=== PATIENT | male | born 1955 | race Caucasian/White ===

== ENCOUNTER 2020-05-14 06:48 | Outpatient (REF) | payer BC, SELFPAY ==
[2020-05-14 11:35] LABS: Estimated Average Glucose 108 mg/dL; Hemoglobin A1c % 5.4 %
[2020-05-14 11:48] LABS: Alanine Aminotransferase 19 U/L (0-40); Anion Gap 17 (12-20); Aspartate Amino Transferase 20 U/L (5-37); Blood Urea Nitrogen 22 mg/dL (9-16); Calcium 9.1 mg/dL (8.4-10.2); Carbon Dioxide 21 mmol/L (22-29); Chloride 106 mmol/L (96-108); Cholesterol 207 mg/dL; Estimated Glomerular Filt Rate > 60; Glucose Fasting 109 mg/dL (60-99); HDL Cholesterol 57 mg/dL; LDL Cholesterol Calculated 119 mg/dl; Potassium 4.5 mmol/l (3.3-5.1); Sodium 139 mmol/L (135-145); Triglycerides 155 mg/dL
[2020-05-14 12:12] LABS: Prostate Specific Antigen 0.35 ng/mL (<0.05-4.0)
== END 2020-05-14 06:49 | disposition home or self-care (01) ==
LOC: HO.HMGCLDS 06:48
PROVIDERS: PCP Internal Medicine; Visit Provider Internal Medicine
DX: Z00.01 Encounter for general adult medical examination with abnormal findings (principal); E78.2 Mixed hyperlipidemia; R73.01 Impaired fasting glucose; Z12.5 Encounter for screening for malignant neoplasm of prostate
CPT/HCPCS: 80048; 80061; 83036; 84153; 84450; 84460

== ENCOUNTER 2020-11-19 07:04 | Outpatient (REF) | payer OTHER, SELFPAY ==
[2020-11-19 12:28] LABS: Alanine Aminotransferase 21 U/L (0-40); Anion Gap 16 (12-20); Aspartate Amino Transferase 20 U/L (5-37); Blood Urea Nitrogen 20 mg/dL (9-16); Calcium 9.2 mg/dL (8.4-10.2); Carbon Dioxide 23 mmol/L (22-29); Chloride 106 mmol/L (96-108); Cholesterol 203 mg/dL; Estimated Glomerular Filt Rate > 60; Glucose Fasting 109 mg/dL (60-99); HDL Cholesterol 57 mg/dL; LDL Cholesterol Calculated 114 mg/dl; Potassium 4.6 mmol/L (3.3-5.1); Sodium 140 mmol/L (135-145); Triglycerides 164 mg/dL
== END 2020-11-19 07:05 | disposition home or self-care (01) ==
LOC: HO.HMGCLDS 07:04
PROVIDERS: Visit Provider Internal Medicine
DX: E66.9 Obesity, unspecified (principal); E78.2 Mixed hyperlipidemia; I10 Essential (primary) hypertension
CPT/HCPCS: 36415; 80048; 80061; 84450; 84460

== ENCOUNTER 2021-08-03 06:54 | Outpatient (REF) | payer OTHER, SELFPAY ==
[2021-08-03 12:11] LABS: Estimated Average Glucose 105 mg/dL; Hemoglobin A1c % 5.3 %
[2021-08-03 12:16] LABS: Alanine Aminotransferase 21 U/L (0-40); Anion Gap 15 (12-20); Aspartate Amino Transferase 21 U/L (5-37); Blood Urea Nitrogen 18 mg/dL (9-16); Calcium 9.5 mg/dL (8.4-10.2); Carbon Dioxide 23 mmol/L (22-29); Chloride 107 mmol/L (96-108); Cholesterol 203 mg/dL; Estimated Glomerular Filt Rate > 60; Glucose Fasting 119 mg/dL (60-99); HDL Cholesterol 60 mg/dL; LDL Cholesterol Calculated 116 mg/dl; Potassium 4.6 mmol/L (3.3-5.1); Sodium 140 mmol/L (135-145); Triglycerides 137 mg/dL
== END 2021-08-03 06:55 | disposition home or self-care (01) ==
LOC: HO.HMGCLDS 06:54
PROVIDERS: PCP Internal Medicine; Visit Provider Internal Medicine
DX: I10 Essential (primary) hypertension (principal); R73.01 Impaired fasting glucose; E78.2 Mixed hyperlipidemia
CPT/HCPCS: 36415; 80048; 80061; 83036; 84450; 84460

== ENCOUNTER 2022-04-01 07:19 | Outpatient (REF) | payer MEDICARE, OTHER, SELFPAY ==
[2022-04-01 12:38] LABS: Alanine Aminotransferase 22 U/L (0-40); Aspartate Amino Transferase 22 U/L (5-37); Cholesterol 204 mg/dL; HDL Cholesterol 53 mg/dL; LDL Cholesterol Calculated 112 mg/dl; Triglycerides 198 mg/dL
[2022-04-01 12:46] LABS: PSA,Total (Free>4and<10) 0.37 ng/mL (0.00-4.00)
== END 2022-04-01 07:20 | disposition home or self-care (01) ==
LOC: HO.HMGCLDS 07:19
PROVIDERS: PCP Internal Medicine; Visit Provider Internal Medicine
DX: Z12.5 Encounter for screening for malignant neoplasm of prostate (principal); E66.9 Obesity, unspecified; E78.2 Mixed hyperlipidemia
CPT/HCPCS: 36415; 80061; 84153; 84450; 84460

== ENCOUNTER 2022-11-26 07:24 | Day surgery (SDC) | payer MEDICARE, OTHER, SELFPAY ==
--- NOTE | 2022-11-25 10:13 | P.CONAN_ITS ---
Documented by User: Mayra Hudson NP 11/25/22 10:14 HPI - Anesthesia Eval Consult details Narrative: 67yo M for Colonoscopy [facility] Active Problems Active Problems: All Active Problems (Updated 11/25/22 @ 09:00 by Sandy Hankins RN) Impaired fasting glucose (Acute) Tubular adenoma of colon (Acute) Obesity (Acute) Mixed dyslipidemia (Acute) Past Medical History Medical History Bakers cyst History of kidney stones Hyperlipidemia Impaired fasting glucose Mixed dyslipidemia Obesity Tendinopathy of right rotator cuff Tubular adenoma of colon Family History Family History Father Medical history non-contributory Mother Medical history non-contributory Brother Diabetes mellitus Surgical History Surgical History (Updated 11/26/22 @ 08:00 by Radha Galvan RN) History of knee surgery Hx of colonoscopy Social History Social History Housing: House Alcohol intake: current Patient Tobacco Use Status: Current someday Tobacco user e-Cigarette/Vaping Use: Never Used Substance Use Frequency: Occasionally Are you DNR?: No Advance Directives: No Advance Directives Information Provided: Yes Nutrition Risks: No Nutritional Risk Current occupational status: employed Cognitive needs: No Hearing needs: No Vision needs: No Meds Allergies Allergy/AdvReac Type Severity Reaction Status Date / Time No Known Allergies Allergy Verified 11/26/22 08:00 Exam Exam Date and Time: November 25, 2022 1013 Assessment and Plan Assessment Anesthesia Assessment: Chart Reviewed Documented by User: Chago Braun MD 11/26/22 08:31 [facility] Past Medical History Medical History Bakers cyst History of kidney stones Hyperlipidemia Impaired fasting glucose Mixed dyslipidemia Obesity Tendinopathy of right rotator cuff Tubular adenoma of colon Family History Family History Father Medical history non-contributory Mother Medical history non-contributory Brother Diabetes mellitus Family history of problems with anesthesia: No Surgical History Surgical History (Updated 11/26/22 @ 08:00 by Radha Galvan RN) History of knee surgery Hx of colonoscopy History of Problems with Anesthesia: No Social History Social History Housing: House Alcohol intake: current Patient Tobacco Use Status: Current someday Tobacco user e-Cigarette/Vaping Use: Never Used Substance Use Frequency: Occasionally Are you DNR?: No Advance Directives: No Advance Directives Information Provided: Yes Nutrition Risks: No Nutritional Risk Current occupational status: employed Cognitive needs: No Hearing needs: No Vision needs: No Meds Allergies Allergy/AdvReac Type Severity Reaction Status Date / Time No Known Allergies Allergy Verified 11/26/22 08:00 Exam Airway Mallampati Class: III TM Dist: >3cm Neck ROM: Full Denture: Lower Assessment and Plan Assessment Anesthesia Assessment: Anesthesia Plan Discussed Final Anesthetic Review Family History of Problems with Anesthesia: No History of Problems with Anesthesia: No NPO: Yes ASA Class: II Final Preanesthetic Review: No Changes in Pt Med Stat, Meds/Allgs Chart Reviewed, Consent Obtained/Reviewed and Anes Risks/Benef Reviewed Patient Risk: Intermediate Procedure Risk: Low Anesthetic Plan Anesthetic Plan: MAC: Disposition: Standard PACU
[2022-11-26 07:52] VITALS: BMI 31.0
[2022-11-26] MEDS: Lactated Ringers 1,000 ML 100 ML IVCONT (07:58)
[2022-11-26 07:59] VITALS: BP 148/93; PULSE 77; RESP 18; TEMP 36.3; O2SAT 97
--- NOTE | 2022-11-26 08:01 | PC.NURSE ---
IV inserted by Frances Hirsch RN
[2022-11-26 10:00] VITALS: BP 111/54; PULSE 62; RESP 16; TEMP 36.1; O2SAT 97
--- NOTE | 2022-11-26 10:03 | P.BOP_ITS ---
Brief Operative Note Date of Service: 11/26/22 Pre-op diagnosis: Screening Post-op diagnosis: other (Colon polyps) Procedure: Colonoscopy to the cecum and TI with hot snare polypectomy x 3, and placement of submucosal ink at the distal transverse colon polypectomy site Surgeon: Brien Galdamez Was an Qualification Engineer used for this Procedure?: No Estimated blood loss (mL): 2.0 Pathology: other (A. Transverse colon polyps B. Distal transverse colon polyp) Condition: stable Disposition: PACU
[2022-11-26 10:15] VITALS: BP 132/87; PULSE 60; RESP 16; TEMP 36.1; O2SAT 99
--- NOTE | 2022-11-26 15:42 | OP_ITS ---
DATE OF SERVICE: 11/26/2022 SURGEON: Brine Galdamez MD INDICATIONS: The patient presents for evaluation of colorectal cancer screening and personal history of tubular adenomas of the colon. Full consent has been obtained from him for this, including risks of bleeding and perforation. PREOPERATIVE DIAGNOSIS: POSTOPERATIVE DIAGNOSIS: PROCEDURE PERFORMED: Colonoscopy to the cecum and terminal ileum with hot snare polypectomy x 3 and submucosal ink placement at the distal transverse colon polypectomy site. ESTIMATED BLOOD LOSS: COMPLICATIONS: ANESTHESIA: Monitored anesthesia care. ASSISTANTS: SPECIMENS: PREOPERATIVE DIAGNOSES: Colorectal cancer screening and personal history of tubular adenomas of the colon. POSTOPERATIVE DIAGNOSES: Colorectal cancer screening and personal history of tubular adenomas of the colon, colon polyps, diverticulosis and internal hemorrhoids. DESCRIPTION OF PROCEDURE: The patient was placed in the left lateral decubitus position. The digital rectal exam revealed no abnormalities. The [employer] video pediatric colonoscope was entered into the rectum and advanced easily to the cecum. Once in the cecum, I did identify normal-appearing cecal pouch with appendiceal orifice and a normal-appearing ileocecal valve. The terminal ileum was cannulated and it appeared normal. The scope was withdrawn back in the colon. The entire cecum and ileocecal valve appeared normal. The scope was then slowly withdrawn assessing all mucosal surface carefully. Preparation was excellent. In the transverse colon, there were 3 polyps. In the mid-portion of the transverse colon, there were two polyps in the same vicinity. These were both approximately 10 to 12 mm in diameter and were removed by hot snare polypectomy. Both polypectomy sites appeared clean, without any sign of residual polyp nor bleeding. In the more distal transverse colon, there was a flat, but raised irregularly shaped polyp measuring approximately 2 x 2 cm. This was all removed in piecemeal fashion with pieces recovered for pathology by suction. A submucosal ink jarett was placed just adjacent to it. The polypectomy site did not have any definitive residual polyp tissue nor any bleeding. I did not visualize any other polyps, colitis, nor angiodysplasia. There was moderate amount of sigmoid diverticulosis. In the rectum, the scope was retroflexed visualizing internal hemorrhoids, but no other pathology. The rectal mucosa appeared normal. The scope was straightened and withdrawn from the patient. He tolerated the procedure well and was returned to the recovery area in stable condition. IMPRESSION: 1. Colon polyps. 2. Diverticulosis. 3. Internal hemorrhoids. PLAN: The results of the pathology will be checked. He was advised not to use any aspirin nor NSAIDs for two weeks. I would recommend a repeat colonoscopy within 6 to 12 months to reinspect the distal transverse colon polypectomy site. He will be seen in the Fall for a followup visit to schedule the colonoscopy. MD ARISTIDES Fernandez/CASSY / [id number] MTDD
== END 2022-11-26 10:50 | disposition home or self-care (01) ==
PROVIDERS: PCP Internal Medicine; Visit Provider Internal Medicine
PROC: 0DJD8ZZ Inspection of Lower Intestinal Tract, Via Natural or Artificial Opening Endoscopic (ICD-10-PCS; CPT 45378; principal; 2022-11-26 08:30)
DX: Z12.11 Encounter for screening for malignant neoplasm of colon (principal); D12.3 Benign neoplasm of transverse colon; K57.30 Diverticulosis of large intestine without perforation or abscess without bleeding; K64.8 Other hemorrhoids; Z86.010 Personal history of colon polyps
CPT/HCPCS: 45385; 45381; 88305

== ENCOUNTER 2023-01-06 06:19 | Outpatient (REF) | payer MEDICARE, OTHER, SELFPAY ==
[2023-01-06 09:28] LABS: Estimated Average Glucose 103 mg/dL; Hemoglobin A1c % 5.2 %
[2023-01-06 09:42] LABS: Alanine Aminotransferase 18 U/L (0-40); Anion Gap 15 (12-20); Aspartate Amino Transferase 21 U/L (5-37); Blood Urea Nitrogen 18 mg/dL (9-16); Calcium 9.1 mg/dL (8.4-10.2); Carbon Dioxide 21 mmol/L (22-29); Chloride 108 mmol/L (96-108); Cholesterol 173 mg/dL; Estimated Glomerular Filt Rate > 60; Glucose Fasting 110 mg/dL (60-99); HDL Cholesterol 61 mg/dL; LDL Cholesterol Calculated 97 mg/dl; Potassium 4.2 mmol/L (3.3-5.1); Sodium 140 mmol/L (135-145); Triglycerides 78 mg/dL
== END 2023-01-06 06:20 | disposition home or self-care (01) ==
LOC: HO.HMGCLDS 06:19
PROVIDERS: PCP Internal Medicine; Visit Provider Internal Medicine
DX: E66.9 Obesity, unspecified (principal); R73.01 Impaired fasting glucose; E78.2 Mixed hyperlipidemia
CPT/HCPCS: 36415; 80048; 80061; 83036; 84450; 84460

== ENCOUNTER 2023-07-29 08:08 | Day surgery (SDC) | payer MEDICARE, SELFPAY ==
--- NOTE | 2023-07-28 10:53 | HO.ANESPROP2 ---
Documented by User: Mayra Hudson NP 07/28/23 10:54 HPI - Anesthesia Eval Consult details Narrative: 67yo M for Colonoscopy [facility] Active Problems Active Problems: All Active Problems (Updated 11/25/22 @ 09:00 by Sandy Hankins RN) Impaired fasting glucose (Acute) Tubular adenoma of colon (Acute) Obesity (Acute) Mixed dyslipidemia (Acute) Past Medical History Medical History Tendinopathy of right rotator cuff Hyperlipidemia Bakers cyst History of kidney stones Impaired fasting glucose Tubular adenoma of colon Obesity Mixed dyslipidemia Family History Family History Father Medical history non-contributory Mother Medical history non-contributory Brother Diabetes mellitus Family history of problems with anesthesia: No Surgical History Surgical History Hx of colonoscopy History of knee surgery History of Problems with Anesthesia: No Social History Social History Housing: House Alcohol intake: current Patient Tobacco Use Status: Former Tobacco user e-Cigarette/Vaping Use: Never Used Substance Use Frequency: Occasionally Are you DNR?: No Advance Directives: No Advance Directives Information Provided: Yes Nutrition Risks: No Nutritional Risk Current occupational status: employed Cognitive needs: No Hearing needs: No Vision needs: No Meds Allergies Allergy/AdvReac Type Severity Reaction Status Date / Time No Known Allergies Allergy Verified 07/29/23 09:19 Assessment and Plan Assessment Anesthesia Assessment: Chart Reviewed Final Anesthetic Review Family History of Problems with Anesthesia: No History of Problems with Anesthesia: No Documented by User: Rosanna Zuleta MD 07/29/23 09:34 PMFSH Active Problems Active Problems: All Active Problems (Updated 07/29/23 @ 09:20 by Rosanna Zuleta MD) Impaired fasting glucose (Acute) Tubular adenoma of colon (Acute) Obesity (Acute) Mixed dyslipidemia (Acute) Past Medical History Medical History Tendinopathy of right rotator cuff Hyperlipidemia Bakers cyst History of kidney stones Impaired fasting glucose Tubular adenoma of colon Obesity Mixed dyslipidemia Family History Family History Father Medical history non-contributory Mother Medical history non-contributory Brother Diabetes mellitus Surgical History Surgical History Hx of colonoscopy History of knee surgery Social History Social History Housing: House Alcohol intake: current Patient Tobacco Use Status: Former Tobacco user e-Cigarette/Vaping Use: Never Used Substance Use Frequency: Occasionally Are you DNR?: No Advance Directives: No Advance Directives Information Provided: Yes Nutrition Risks: No Nutritional Risk Current occupational status: employed Cognitive needs: No Hearing needs: No Vision needs: No Meds Allergies Allergy/AdvReac Type Severity Reaction Status Date / Time No Known Allergies Allergy Verified 07/29/23 09:19 Exam Height,Weight and Vital Signs: Height 5 ft 8 in Weight 90.083 kg Vital Signs Temp Pulse Resp BP Pulse Ox O2 Del Method 07/29/23 09:19 97.9 F 70 18 147/93 H 97 Room Air Airway Mallampati Class: II TM Dist: >3cm Neck ROM: Full Partial: Upper and Lower Loose/Missing/Broken Teeth: Yes (Missing teeth. Loose front teeth bottom) Heart: RRR Lungs: CTAB Assessment and Plan Assessment Anesthesia Assessment: Anesthesia Plan Discussed Final Anesthetic Review NPO: Yes ASA Class: II Final Preanesthetic Review: No Changes in Pt Med Stat, Meds/Allgs Chart Reviewed, Consent Obtained/Reviewed and Anes Risks/Benef Reviewed Patient Risk: Low Procedure Risk: Low Assessment/Block/Sedation in SS: Assess/Block/Sedation-SS Anesthetic Plan Anesthetic Plan: TIVA Disposition: Standard PACU
[2023-07-29 09:10] VITALS: BMI 30.2
[2023-07-29 09:19] VITALS: BP 147/93; PULSE 70; RESP 18; TEMP 36.6; O2SAT 97
--- NOTE | 2023-07-29 09:50 | PC.NURSE ---
dr. montes stated for patient to keep upper partial in.
[2023-07-29 10:48] VITALS: BP 119/71; PULSE 79; RESP 16; TEMP 37.2; O2SAT 100
--- NOTE | 2023-07-29 10:53 | PM.OP ---
Brief Operative Note Date of Service: 07/29/23 Pre-op diagnosis: Screening Post-op diagnosis: other (Diverticulosis) Procedure: Colonoscopy to the cecum and TI Surgeon: Brien Galdamez MD Anesthesia: MAC Was an Sock Ironer used for this Procedure?: No Estimated blood loss (mL): 0 Pathology: none sent Condition: stable Disposition: PACU
[2023-07-29 11:03] VITALS: BP 138/84; PULSE 66; RESP 18; TEMP 36.8; O2SAT 98
--- NOTE | 2023-07-29 11:11 | OP_ITS ---
DATE OF SERVICE: 07/29/2023 SURGEON: Brien Galdamez MD INDICATIONS: The patient presents for evaluation of colorectal cancer screening and personal history of tubular adenoma of the colon. Full consent has been obtained from him for this, including risks of bleeding and perforation. PREOPERATIVE DIAGNOSIS: Colorectal cancer screening and personal history of tubular adenoma of the colon. POSTOPERATIVE DIAGNOSIS: Colorectal cancer screening and personal history of tubular adenoma of the colon, diverticulosis, internal hemorrhoids. PROCEDURE PERFORMED: Colonoscopy to the cecum and terminal ileum. ESTIMATED BLOOD LOSS: COMPLICATIONS: ANESTHESIA: Medication Used: Monitored anesthesia care. ASSISTANTS: SPECIMENS: DESCRIPTION OF PROCEDURE: The patient was placed in the left lateral decubitus position. The digital rectal exam revealed no abnormalities. The [employer] video pediatric colonoscope was entered into the rectum and advanced easily to the cecum. Once in the cecum, I did identify a normal-appearing cecal pouch with appendiceal orifice and a normal-appearing ileocecal valve. The terminal ileum was cannulated and appeared normal. The scope was withdrawn back in the colon. The entire cecum and ileocecal valve appeared normal. The scope was slowly withdrawn, assessing all mucosal surfaces carefully. Preparation was excellent. I did not visualize any sign of polyps, colitis, nor angiodysplasia. In the distal transverse colon, was the previously placed submucosal ink jarett. Adjacent to this, I did visualize a scar from the previous polypectomy, but no sign of any residual polyp tissue. There was a moderate amount of sigmoid diverticulosis. In the rectum, scope was retroflexed, visualizing internal hemorrhoids, but no other pathology. The rectal mucosa appeared normal. The scope was straightened and withdrawn from the patient. He tolerated the procedure well and was returned to the recovery area in stable condition. IMPRESSION: Previously placed submucosal ink jarett noted, but no sign of any residual polyp tissue. PLAN: I would recommend a repeat colonoscopy in 2 years for further screening given the previous history. He will otherwise see me on a p.r.n. basis. MD ARISTIDES Fernandez/CASSY / [id number]
== END 2023-07-29 11:25 | disposition home or self-care (01) ==
PROVIDERS: PCP Internal Medicine; Visit Provider Internal Medicine
PROC: 0DJD8ZZ Inspection of Lower Intestinal Tract, Via Natural or Artificial Opening Endoscopic (ICD-10-PCS; CPT 45378; principal; 2023-07-29 09:30)
DX: Z12.11 Encounter for screening for malignant neoplasm of colon (principal); Z86.010 Personal history of colon polyps; K57.30 Diverticulosis of large intestine without perforation or abscess without bleeding; K64.8 Other hemorrhoids; E78.5 Hyperlipidemia, unspecified; M71.22 Synovial cyst of popliteal space [Baker], left knee; Z79.899 Other long term (current) drug therapy; Z87.442 Personal history of urinary calculi; Z87.891 Personal history of nicotine dependence; Z98.890 Other specified postprocedural states
CPT/HCPCS: G0105; J2704

== ENCOUNTER 2023-08-31 08:01 | Outpatient (REF) | payer MEDICARE, SELFPAY ==
[2023-08-31 13:02] LABS: Alanine Aminotransferase 15 U/L (0-40); Aspartate Amino Transferase 19 U/L (5-37); Cholesterol 195 mg/dL (<200); HDL Cholesterol 64 mg/dL (>40); LDL Cholesterol Calculated 111 mg/dL (<100); Triglycerides 101 mg/dL (<150)
== END 2023-08-31 08:02 | disposition home or self-care (01) ==
LOC: HO.HMGCLDS 08:01
PROVIDERS: PCP Internal Medicine; Visit Provider Internal Medicine
DX: E78.2 Mixed hyperlipidemia (principal)
CPT/HCPCS: 36415; 80061; 84450; 84460

== ENCOUNTER 2023-09-02 11:49 | Outpatient (AMB) | payer MEDICARE, SELFPAY ==
[2023-09-02 12:08] VITALS: BP 132/76; PULSE 72; O2SAT 96; BMI 30.4
--- NOTE | 2023-09-02 12:08 | MHC.PC.OV ---
Vital Signs 09/02/23 12:08 Height 5 ft 8 in Weight 200 lb BMI 30.4 BP 132/76 Blood Pressure Location Rt brachial Position Sitting Pulse 72 Pulse Source Pulse Oximeter Pulse Oximetry (%) 96 Oxygen Delivery Method Room Air Intake Visit Reasons: 6 month follow up/NO show 06/28 Intake Note: Pt is here to follow up for lab results Allergies No Known Allergies Allergy (Verified 09/02/23 12:44) Medication List - Last Reconciled 09/02/23 by Maritza Bose MD atorvastatin 10 mg PO DAILY fenofibric acid (choline) 135 mg PO DAILY omega-3 acid ethyl esters 2 caps PO BID 90 days Tobacco use date assessed: 09/02/23 Fall risk assessment: No Falls in past year Last assessed Fall Risk: 09/02/23 Dental Screening Dental Screen Date: 09/02/23 Did you have a dental visit in the last 12 months?: No Did you have a dental problem in the last 6 months where you did not have access to dental care?: No Was dental information given to patient?: No HPI 6 month follow up/NO show 06/28 HPI Details No here today for follow-up on his hyperlipidemia. Currently taking atorvastatin and fenofibric acid as well as [place] 3 fatty acid supplements. He has been staying active, and has been trying follow recommended diet. Latest fasting labs showed fasting lipid levels are within normal limits as well as liver enzymes . He has been feeling well with no complaints at present time [facility] Medical History Tendinopathy of right rotator cuff Hyperlipidemia Bakers cyst History of kidney stones Impaired fasting glucose Tubular adenoma of colon Obesity Mixed dyslipidemia Surgical History Hx of colonoscopy History of knee surgery Family History Father Medical history non-contributory Mother Medical history non-contributory Brother Diabetes mellitus Social History Housing: House Alcohol intake: current Patient Tobacco Use Status: Former Tobacco user e-Cigarette/Vaping Use: Never Used Current occupational status: employed Cognitive needs: No Hearing needs: No Vision needs: No Questionnaire PHQ-9 Over the last 2 weeks, how often have you been bothered by any of the following problems? 1. Little interest or pleasure in doing things: not at all 2. Feeling down, depressed, or hopeless: not at all 3. Trouble falling or staying asleep, or sleeping too much: not at all 4. Feeling tired or having little energy: several days 5. Poor appetite or overeating: not at all 6. Feeling bad about yourself - or that you are a failure or have let yourself or your family down: not at all 7. Trouble concentrating on things, such as reading the newspaper or watching television: not at all 8. Moving or speaking so slowly that other people could have noticed. Or the opposite - being so fidgety or restless that you have been moving around a lot more than usual: not at all 9. Thoughts that you would be better off or of hurting yourself in some way: not at all Total score: 1 Depression Screening Interpretation: Negative Depression Screening Done: Yes 14626 - PHQ-9 Billing: Yes Source: Developed by Drs. Brien Perez, Isabella Merritt, Winston Goss and colleagues, with an educational aixa from [employer]. Thrive Questionnaire Date Thrive assessed: 09/02/23 I am a: Patient What is your living situation today?: I have a steady place to live Within the past 12 months, did the food you bought not last and you didn't have the money to get more?: Never true Within the past 12 months, did you worry whether your food would run out before you got money to buy more?: Never true Do you have trouble paying for medicines?: No Do you have trouble getting transportation to medical appointments?: No Do you have trouble paying your heating and electricity bill?: No Do you have trouble taking care of your child, family member or friend?: No Do you have trouble with day-to-day activities such as bathing, preparing meals, shopping, managing finances, etc.?: No Are you currently unemployed and looking for a job?: No Are you interested in more education?: No THRIVE Score: 0 AUDIT C Alcohol Use Questionnaire (AUDIT-C) 1. How often do you have a drink containing alcohol?: 4 or more times a week 2. How many drinks containing alcohol do you have on a typical day when you are drinking?: 3 or 4 3. How often do you have six or more drinks on one occasion?: Monthly Total Score: 7 Score Reviewed/Action Taken: Yes MIGUEL ANGEL-7 AMB Questionnaire MIGUEL ANGEL-7 Date MIGUEL ANGEL - 7 assessed: 09/02/23 Feeling nervous, anxious, or on edge: 0 = Not at all Not being able to stop or control worryin = Not at all Worrying too much about different things: 0 = Not at all Trouble relaxin = Not at all Being so restless that it is hard to sit still: 0 = Not at all Becoming easily annoyed or irritable: 0 = Not at all Feeling afraid as if something awful might happen: 0 = Not at all Total MIGUEL ANGEL-7 score (0-4 normal; 5-9 mild; 10-14 moderate; 15-21 severe): 0 Source: Developed by Drs. Brien Perez, Isabella Merritt, Winston Goss and colleagues, with an educational aixa from [employer]. MIGUEL ANGEL-7 Assessment Billing MIGUEL ANGEL-7 Assessment Tool: MIGUEL ANGEL-7 Assessment 30209 Review of Systems Const Denies body aches, Denies fatigue, Denies fever(s), Denies headache(s) and Denies weakness Eyes Denies change in vision and Denies eye discharge ENT Reports Normal hearing present, Denies dizziness, Denies headache(s), Denies nasal congestion, Denies nasal discharge and Denies sore throat Card Denies chest pain, Denies lightheadedness, Denies palpitations and Denies dyspnea Resp Denies chest congestion, Denies cough and Denies dyspnea GI Denies abdominal pain, Denies change in bowel habits and Denies heartburn Denies dysuria, Denies urinary frequency and Denies urinary urgency Musc Details: Denies muscle pain, weakness or cramping Skin/Breast Denies lesions and Denies rash Neuro Reports Normal hearing present, Denies dizziness, Denies headache(s), Denies Sensory deficit (Neuro) and Denies weakness Endo Denies fatigue, Denies polydipsia, Denies polyuria and Denies palpitations Physical exam (Primary Care) Vital Signs: Last Vital Signs Pulse 72 09/02/23 12:08 BP 132/76 09/02/23 12:08 Pulse Ox 96 09/02/23 12:08 Oxygen Delivery Method Room Air 09/02/23 12:08 BMI result Body Mass Index 30.4 BMI Assessment/Plan discussion: High BMI High, discussed plan: weight reduction, dietary and physical activity Tobacco/Smoking Status: Tobacco use Status Tobacco use date assessed 09/02/23 09/02/23 12:13 Patient Tobacco Use Status Former Tobacco user 09/02/23 12:10 Tobacco use type 04/26/23 11:19 e-Cigarette/Vaping Use Never Used 09/02/23 12:10 PHQ-9: PHQ-9 Score PHQ-9: Total score 1 09/02/23 12:44 Depression Screening Interpretation: Negative Thrive Assessment: Date of Thrive Assessment Date Thrive assessed 09/02/23 09/02/23 12:44 Const General: cooperative, no acute distress and alert Limitations: no limitations HENMT Mouth: moist mucous membranes Neck Neck: Yes full ROM and Yes no lymphadenopathy Thyroid: Thyroid normal Resp Effort & Inspection: normal respiratory effort and able to speak in complete sentences Auscultation: clear to auscultation bilaterally Cardio Jugular venous distension: no JVD Rate: regular rate Rhythm: regular rhythm Heart sounds: S1 normal heart sound present and S2 normal heart sound present GI Inspection: Yes normal to inspection Palpation (GI): Soft to palpation Auscultation: normal bowel sounds Skin General skin exam: no rashes or lesions noted Neuro Cranial nerves: Yes Normal hearing present Sensory Exam: No Sensory deficit (Neuro) Extrem General: Yes normal to inspection, Yes full ROM, Yes no pedal edema and Yes normal gait Psych Appearance: grossly normal and well kempt Mental Status: mental status grossly normal Speech and movement: Normal speech and movement present Affect: normal affect Attitude: cooperative Thought process: Normal thought process present Thought content: Normal thought content present Results Reviewed Results Reviewed: Name: Himanshu Payan Age/Sex: 68/M : 1955 Unit#: [id number] Attend Dr: Maritza Bose MD Re08/31/23 Status: DEP REF Location: [facility] Disch: SPEC : [id number] HUDSON: 08/31/23 STATUS: COMP REQ : [id number] RECD: 08/31/23-[address]: Maritza Bose MD COMP: 08/31/23-1302 ENTERED: 08/31/23-[address]: ORDERED: AST, ALT, Lipid Panel Test Result Flag Reference AST (GOT) 19 5-37 U/L ALT (GPT) 15 0-40 U/L Triglyceride 101 <150 mg/dL Desirable Triglyceride: less than 150 mg/dL Borderline High Triglyceride 150-199 mg/dL High Triglyceride: 200-499 mg/dL Very High Triglyceride: greater than or equal to 5OO mg/dL Cholesterol 195 <200 mg/dL Desirable Cholesterol: less than 200 mg/dL Borderline High Cholesterol: 200-239 mg/dL High Cholesterol: greater than 239 mg/dL LDL Calculated 111 H <100 mg/dL Desirable LDL: less than 100 mg/dL Near Optimal/Above Optimal LDL: 110-129 mg/dL Borderline High LDL: 130-159 mg/dL High LDL: 160-189 mg/dL Very High LDL: greater than or equal to 190 mg/dL HDL 64 >40 mg/dL Desirable HDL: greater than 40 mg/dL Note: This HDL assay may give artificially low results in patients with liver disease. Assessment and Plan Assessment & Plan Medications: Refilled atorvastatin 10 mg PO DAILY 90 tabs 3RF fenofibric acid (choline) 135 mg PO DAILY 90 caps 3RF omega-3 acid ethyl esters 2 caps PO BID 360 caps 3RF 90 days E78.2 - Mixed hyperlipidemia Coding Level of Care Code Est Pt Level 3 (83299) Additional Codes MIGUEL ANGEL-7 Assessment Billing - MIGUEL ANGEL-7 Assessment Tool: MIGUEL ANGEL-7 Assessment 70743 ([id number])
== END 2023-09-02 12:46 | disposition home or self-care (01) ==
PROVIDERS: PCP Internal Medicine; Visit Provider Internal Medicine
DX: E78.2 Mixed hyperlipidemia (principal)
CPT/HCPCS: 99213

== ENCOUNTER 2024-04-17 08:30 | Outpatient (AMB) | payer MEDICARE, SELFPAY ==
[2024-04-17 09:58] VITALS: BP 135/80; PULSE 65; O2SAT 99; BMI 29.8
--- NOTE | 2024-04-17 09:58 | MHC.PC.OV ---
Vital Signs 04/17/24 09:58 Height 5 ft 8 in Weight 196 lb BMI 29.8 BP 135/80 Blood Pressure Location Rt brachial Position Sitting Pulse 65 Pulse Source Pulse Oximeter Pulse Oximetry (%) 99 Oxygen Delivery Method Room Air Intake Visit Reasons: Annual PE Intake Note: Pt is here today for his PE: last colonoscopy 11/26/22 Allergies No Known Allergies Allergy (Verified 04/22/24 22:35) Medication List - Last Reconciled 04/22/24 by Maritza Bose MD atorvastatin 10 mg PO DAILY fenofibric acid (choline) 135 mg PO DAILY omega-3 acid ethyl esters 2 caps PO BID 90 days Tobacco use date assessed: 04/17/24 Fall risk assessment: No Falls in past year Last assessed Fall Risk: 04/17/24 Dental Screening Dental Screen Date: 04/17/24 Did you have a dental visit in the last 12 months?: No Did you have a dental problem in the last 6 months where you did not have access to dental care?: No Was dental information given to patient?: No HPI Annual PE HPI Details 68-year-old male with hyperlipidemia history of impaired fasting glucose as well as adenomatous polyp in colon, here today for his physical exam. He has been feeling well, no complaints at present time, takes his medicines as directed and stays active. Had a screening colonoscopy done earlier this year with Dr. Galdamez, with tubular adenoma removed, repeat colonoscopy again to be done in 2 years [facility] Medical History (Updated 04/22/24 @ 22:38 by Maritza Bose MD) History of adenomatous polyp of colon Tendinopathy of right rotator cuff Hyperlipidemia Bakers cyst History of kidney stones Impaired fasting glucose Obesity Mixed dyslipidemia Surgical History Hx of colonoscopy History of knee surgery Family History Father Medical history non-contributory Mother Medical history non-contributory Brother Diabetes mellitus Social History Housing: House Alcohol intake: current Patient Tobacco Use Status: Former Tobacco user e-Cigarette/Vaping Use: Never Used Current occupational status: employed Cognitive needs: No Hearing needs: No Vision needs: No Questionnaire PHQ-9 Over the last 2 weeks, how often have you been bothered by any of the following problems? 1. Little interest or pleasure in doing things: not at all 2. Feeling down, depressed, or hopeless: not at all 3. Trouble falling or staying asleep, or sleeping too much: not at all 4. Feeling tired or having little energy: not at all 5. Poor appetite or overeating: not at all 6. Feeling bad about yourself - or that you are a failure or have let yourself or your family down: not at all 7. Trouble concentrating on things, such as reading the newspaper or watching television: not at all 8. Moving or speaking so slowly that other people could have noticed. Or the opposite - being so fidgety or restless that you have been moving around a lot more than usual: not at all 9. Thoughts that you would be better off or of hurting yourself in some way: not at all Total score: 0 Depression Screening Interpretation: Negative Depression Screening Done: Yes 15329 - PHQ-9 Billing: Yes Source: Developed by Drs. Brien Perez, Isabella Merritt, Winston Goss and colleagues, with an educational aixa from [email or web address]. Thrive Questionnaire Date Thrive assessed: 09/02/23 AUDIT C Alcohol Use Questionnaire (AUDIT-C) 1. How often do you have a drink containing alcohol?: 2-4 times a month 2. How many drinks containing alcohol do you have on a typical day when you are drinking?: 1 or 2 3. How often do you have six or more drinks on one occasion?: Never Total Score: 2 Score Reviewed/Action Taken: Yes MIGUEL ANGEL-7 AMB Questionnaire MIGUEL ANGEL-7 Date MIGUEL ANGEL - 7 assessed: 09/02/23 Source: Developed by Drs. Brien Perez, Isabella Merritt, Winston Goss and colleagues, with an educational aixa from [email or web address]. Review of Systems Const Denies body aches, Denies fatigue, Denies fever(s), Denies headache(s) and Denies weakness Eyes Denies change in vision ENT Reports Normal hearing present, Denies dizziness, Denies headache(s), Denies nasal congestion, Denies nasal discharge and Denies sore throat Card Denies chest pain, Denies lightheadedness, Denies palpitations and Denies dyspnea Resp Denies chest congestion, Denies cough and Denies dyspnea GI Denies abdominal pain, Denies change in bowel habits and Denies heartburn Denies dysuria, Denies urinary frequency and Denies urinary urgency Musc Details: Denies muscle pain, weakness or cramping Skin/Breast Denies lesions and Denies rash Neuro Reports Normal hearing present, Denies dizziness, Denies headache(s), Denies Sensory deficit (Neuro) and Denies weakness Psych Reports no additional complaints Endo Denies fatigue, Denies polydipsia, Denies polyuria and Denies palpitations Brian/Lymph Reports no additional complaints Aller/Immun Reports no additional complaints Physical exam (Primary Care) Vital Signs: Last Vital Signs Pulse 65 04/17/24 09:58 BP 135/80 04/17/24 09:58 Pulse Ox 99 04/17/24 09:58 Oxygen Delivery Method Room Air 04/17/24 09:58 BMI result Body Mass Index 29.8 BMI Assessment/Plan discussion: High BMI High, discussed plan: weight reduction, dietary and physical activity Tobacco/Smoking Status: Tobacco use Status Tobacco use date assessed 04/17/24 04/17/24 10:02 Patient Tobacco Use Status Former Tobacco user 04/17/24 10:02 Tobacco use type 04/26/23 11:19 e-Cigarette/Vaping Use Never Used 04/17/24 10:02 Depression Screening Interpretation: Negative Thrive Assessment: Date of Thrive Assessment Date Thrive assessed 09/02/23 04/17/24 10:02 Const General: cooperative, no acute distress and alert Limitations: no limitations [facility] Mouth: moist mucous membranes Eyes General: appearance normal, both eyes and all related structures Neck Neck: Yes full ROM and Yes no lymphadenopathy Thyroid: Thyroid normal Resp Effort & Inspection: normal respiratory effort and able to speak in complete sentences Auscultation: clear to auscultation bilaterally Cardio Rate: regular rate Rhythm: regular rhythm Heart sounds: S1 normal heart sound present and S2 normal heart sound present GI Inspection: Yes normal to inspection Palpation (GI): Soft to palpation Auscultation: normal bowel sounds General: Yes no CVA tenderness Male General Exam: Yes normal external exam Back/Spine/Pelvis Back: no CVA tenderness and No back tenderness Skin General skin exam: no rashes or lesions noted Neuro Cranial nerves: Yes Normal hearing present Sensory Exam: No Sensory deficit (Neuro) Extrem General: Yes normal to inspection, Yes full ROM, Yes no pedal edema and Yes normal gait Psych Appearance: grossly normal and well kempt Mental Status: mental status grossly normal Speech and movement: Normal speech and movement present Affect: normal affect Attitude: cooperative Thought process: Normal thought process present Thought content: Normal thought content present Assessment and Plan Assessment & Plan (1) Impaired fasting glucose: Code(s): R73.01 - Impaired fasting glucose Plan: Fasting blood sugar ordered today. Your previous fasting blood sugars were elevated above 100 mg/dL. Impaired glucose metabolism increases the risk for developing diabetes mellitus type 2, as well as heart attack and stroke later on. Lifestyle changes that promotes weight loss, healthy eating habits, and regular exercise are important, and can prevent the progression to diabetes (2) Obesity: Code(s): E66.9 - Obesity, unspecified Qualifiers: Body mass index: BMI 31.0-31.9 Obesity classification: adult class 1 (BMI 30 - 34.9) Obesity type: due to excess calories Serious obesity comorbidity presence: without serious comorbidity Qualified Code(s): E66.09 - Other obesity due to excess calories; Z68.31 - Body mass index [BMI] 31.0-31.9, adult Plan: Discussed need to increase activity and wt reduction. Recommended focusing on improving your health instead of dieting. : Eat Mediterranean diet, limit foods high in fat, sugar, and calories, eat slowly, pay attention to portion sizes, plan your meals ahead of time, start regular physical activity 150 minutes of moderate intensity exercise or 90 minutes/week of vigorous exercise and increase water intake and cut back on alcohol intake (3) Mixed dyslipidemia: Code(s): E78.2 - Mixed hyperlipidemia Plan: Fasting lipid panel ordered continue with atorvastatin fenofibric acid and [place] 3 fatty acid supplements. Reinforced importance of following a low-cholesterol diet and getting regular exercise (4) Annual visit for general adult medical examination with abnormal findings: Code(s): Z00.01 - Encounter for general adult medical examination with abnormal findings Plan: Will check appropriate labs. Recommended dental visit every 6 months and regular eye exams, at least every 2 years. Take adequate calcium in diet and vitamin-D 3 at 2000 IU per cap once a day, in addition to weight-bearing exercises to help maintain good muscle tone and weight control. Instructed to do self-testicular exam check for any mass. Date with screening colonoscopy. Reminded to get his yearly flu vaccine COVID booster, and shingles vaccine. Up-to-date with his pneumonia vaccination and Tdap (5) History of adenomatous polyp of colon: Comment: Removed on colonoscopy by Dr. Galdamez 2023 and in 2016 Code(s): Z86.010 - Personal history of colonic polyps Plan: Due for repeat colonoscopy screening with Dr. Galdamez in 2019 Orders: Orders Hemoglobin A1c 04/17/24 E66.09 - Other obesity due to excess calories, E78.2 - Mixed hyperlipidemia, R73.01 - Impaired fasting glucose, Z00.01 - Encounter for general adult medical examination with abnormal findings, Z12.5 - Encounter for screening for malignant neoplasm of prostate, Z68.31 - Body mass index [BMI] 31.0-31.9, adult Alanine Aminotransferase 04/17/24 E66.09 - Other obesity due to excess calories, E78.2 - Mixed hyperlipidemia, R73.01 - Impaired fasting glucose, Z00.01 - Encounter for general adult medical examination with abnormal findings, Z12.5 - Encounter for screening for malignant neoplasm of prostate, Z68.31 - Body mass index [BMI] 31.0-31.9, adult Aspartate Amino Transferase 04/17/24 E66.09 - Other obesity due to excess calories, E78.2 - Mixed hyperlipidemia, R73.01 - Impaired fasting glucose, Z00.01 - Encounter for general adult medical examination with abnormal findings, Z12.5 - Encounter for screening for malignant neoplasm of prostate, Z68.31 - Body mass index [BMI] 31.0-31.9, adult Basic Metabolic Panel Fasting 04/17/24 E66.09 - Other obesity due to excess calories, E78.2 - Mixed hyperlipidemia, R73.01 - Impaired fasting glucose, Z00.01 - Encounter for general adult medical examination with abnormal findings, Z12.5 - Encounter for screening for malignant neoplasm of prostate, Z68.31 - Body mass index [BMI] 31.0-31.9, adult Lipid Panel 04/17/24 E66.09 - Other obesity due to excess calories, E78.2 - Mixed hyperlipidemia, R73.01 - Impaired fasting glucose, Z00.01 - Encounter for general adult medical examination with abnormal findings, Z12.5 - Encounter for screening for malignant neoplasm of prostate, Z68.31 - Body mass index [BMI] 31.0-31.9, adult Microalbumin, Random (w Creat) 04/17/24 E66.09 - Other obesity due to excess calories, E78.2 - Mixed hyperlipidemia, R73.01 - Impaired fasting glucose, Z00.01 - Encounter for general adult medical examination with abnormal findings, Z12.5 - Encounter for screening for malignant neoplasm of prostate, Z68.31 - Body mass index [BMI] 31.0-31.9, adult Vitamin D 25-OH Total 04/17/24 E66.09 - Other obesity due to excess calories, E78.2 - Mixed hyperlipidemia, R73.01 - Impaired fasting glucose, Z00.01 - Encounter for general adult medical examination with abnormal findings, Z12.5 - Encounter for screening for malignant neoplasm of prostate, Z68.31 - Body mass index [BMI] 31.0-31.9, adult PSA,Total (Free>4and<10) 04/17/24 E66.09 - Other obesity due to excess calories, E78.2 - Mixed hyperlipidemia, R73.01 - Impaired fasting glucose, Z00.01 - Encounter for general adult medical examination with abnormal findings, Z12.5 - Encounter for screening for malignant neoplasm of prostate, Z68.31 - Body mass index [BMI] 31.0-31.9, adult Coding Level of Care Code Est Pt [facility] Care >65y([id number]) Diagnoses Impaired fasting glucose R73.01 Class 1 obesity due to excess calories without serious comorbidity with body mass index (BMI) of 31.0 to 31.9 in adult E66.09; Z68.31 Body mass index: BMI 31.0-31.9 Obesity classification: adult class 1 (BMI 30 - 34.9) Obesity type: due to excess calories Serious obesity comorbidity presence: without serious comorbidity Mixed dyslipidemia E78.2 Annual visit for general adult medical examination with abnormal findings Z00.01 History of adenomatous polyp of colon Z86.010
== END 2024-04-17 11:00 | disposition home or self-care (01) ==
PROVIDERS: PCP Internal Medicine; Visit Provider Internal Medicine
DX: R73.01 Impaired fasting glucose (principal); E66.09 Other obesity due to excess calories; Z68.31 Body mass index [BMI] 31.0-31.9, adult; E78.2 Mixed hyperlipidemia; Z00.01 Encounter for general adult medical examination with abnormal findings; Z86.010 Personal history of colon polyps

== ENCOUNTER → 2024-04-17 08:30 | Outpatient (BNVA) | payer MEDICARE, SELFPAY | PROVIDERS: PCP Internal Medicine; Visit Provider Internal Medicine | DX: Z00.01 Encounter for general adult medical examination with abnormal findings (principal); R73.01 Impaired fasting glucose; E66.09 Other obesity due to excess calories; Z68.31 Body mass index [BMI] 31.0-31.9, adult; E78.2 Mixed hyperlipidemia; Z86.010 Personal history of colon polyps; Z71.3 Dietary counseling and surveillance | CPT/HCPCS: 96127; 99397 ==

== ENCOUNTER → 2024-07-05 13:35 | Outpatient (BNVA) | payer MEDICARE, SELFPAY | PROVIDERS: PCP Internal Medicine ==

== ENCOUNTER 2024-10-11 06:21 | Outpatient (REF) | payer MEDICARE, SELFPAY ==
[2024-10-11 10:24] LABS: Estimated Average Glucose 103 mg/dL; Hemoglobin A1c % 5.2 % (<6.0); Total Hemoglobin (HGBA1C) 3409.9788 umol/L
[2024-10-11 10:41] LABS: Alanine Aminotransferase 17 U/L (0-40); Anion Gap 12 (12-20); Aspartate Amino Transferase 30 U/L (5-37); Blood Urea Nitrogen 18 mg/dL (9-16); Calcium 9.2 mg/dL (8.4-10.2); Carbon Dioxide 23 mmol/L (22-29); Chloride 110 mmol/L (96-108); Cholesterol 195 mg/dL (<200); Estimated Glomerular Filt Rate > 60; Glucose Fasting 97 mg/dL (60-99); HDL Cholesterol 59 mg/dL (>40); LDL Cholesterol Calculated 99 mg/dL (<100); Potassium 4.3 mmol/L (3.3-5.1); Sodium 141 mmol/L (135-145); Triglycerides 187 mg/dL (<150)
[2024-10-11 10:58] LABS: PSA,Total (Free>4and<10) 0.39 ng/mL (0.00-4.00)
[2024-10-11 10:59] LABS: Creatinine Urine 81.02 mg/dL; Microalbum/Creatinine Ratio Ur 17.2 ug/mg cr (<30); Vitamin D 25-OH Total 102.5 ng/mL (>30)
== END 2024-10-11 06:22 | disposition home or self-care (01) ==
LOC: HO.HMGCLDS 06:21
PROVIDERS: PCP Internal Medicine; Visit Provider Internal Medicine
DX: Z00.01 Encounter for general adult medical examination with abnormal findings (principal); R73.01 Impaired fasting glucose; E78.2 Mixed hyperlipidemia; E66.09 Other obesity due to excess calories; Z68.31 Body mass index [BMI] 31.0-31.9, adult; Z12.5 Encounter for screening for malignant neoplasm of prostate
CPT/HCPCS: 36415; 80048; 80061; 82043; 82306; 82570; 83036; 84153; 84450; 84460

== ENCOUNTER 2024-10-15 08:02 | Outpatient (AMB) | payer MEDICARE, SELFPAY ==
[2024-10-15 08:03] VITALS: BP 130/80; PULSE 88; RESP 16; TEMP 36.5; O2SAT 99; BMI 31.0
--- NOTE | 2024-10-15 08:03 | MHC.PC.OV ---
Vital Signs 10/15/24 08:03 Height 5 ft 8 in Weight 204 lb BMI 31.0 BP 130/80 Blood Pressure Location Lt brachial Position Sitting Respiration 16 Pulse 88 Pulse Source Pulse Oximeter Temp 97.7 F Temp Source Oral Pulse Oximetry (%) 99 Oxygen Delivery Method Room Air Intake Visit Reasons: 6 month follow up Intake Note: Pt is here today for his 6mo. f/u Allergies No Known Allergies Allergy (Verified 10/15/24 08:51) Medication List - Last Reconciled 10/15/24 by Maritza Bose MD atorvastatin 10 mg PO DAILY fenofibric acid (choline) 135 mg PO DAILY omega-3 acid ethyl esters 2 caps PO BID 90 days Tobacco use date assessed: 10/15/24 Fall risk assessment: 1 Fall in past year Last assessed Fall Risk: 10/15/24 Dental Screening Dental Screen Date: 10/15/24 HPI 6 month follow up HPI Details 69-year-old male with history of mixed dyslipidemia, obesity, impaired fasting glucose and history of adenomatous polyp of colon, here today for for his follow-up. Patient has been compliant with taking his medications, and tries to adhere to recommended diet but admits to not getting much regular exercise this past winter months. Has been well with no complaints at present time. [facility] Medical History History of adenomatous polyp of colon Tendinopathy of right rotator cuff Hyperlipidemia Bakers cyst History of kidney stones Impaired fasting glucose Obesity Mixed dyslipidemia Surgical History Hx of colonoscopy History of knee surgery Family History Father Medical history non-contributory Mother Medical history non-contributory Brother Diabetes mellitus Social History Housing: House Alcohol intake: current Patient Tobacco Use Status: Former Tobacco user e-Cigarette/Vaping Use: Never Used Current occupational status: employed Cognitive needs: No Hearing needs: No Vision needs: No Questionnaire PHQ-9 Over the last 2 weeks, how often have you been bothered by any of the following problems? 1. Little interest or pleasure in doing things: not at all 2. Feeling down, depressed, or hopeless: not at all 3. Trouble falling or staying asleep, or sleeping too much: not at all 4. Feeling tired or having little energy: not at all 5. Poor appetite or overeating: not at all 6. Feeling bad about yourself - or that you are a failure or have let yourself or your family down: not at all 7. Trouble concentrating on things, such as reading the newspaper or watching television: not at all 8. Moving or speaking so slowly that other people could have noticed. Or the opposite - being so fidgety or restless that you have been moving around a lot more than usual: not at all 9. Thoughts that you would be better off or of hurting yourself in some way: not at all Total score: 0 Depression Screening Interpretation: Negative Depression Screening Done: Yes 86038 - PHQ-9 Billing: Yes Source: Developed by Drs. Brien Perez, Isabella Merritt, Winston Goss and colleagues, with an educational aixa from [employer]. Thrive Questionnaire Date Thrive assessed: 10/15/24 I am a: Patient What is your living situation today?: I have a steady place to live Within the past 12 months, did the food you bought not last and you didn't have the money to get more?: Never true Within the past 12 months, did you worry whether your food would run out before you got money to buy more?: Never true Do you have trouble paying for medicines?: No Do you have trouble getting transportation to medical appointments?: No Do you have trouble paying your heating and electricity bill?: No Do you have trouble taking care of your child, family member or friend?: No Do you have trouble with day-to-day activities such as bathing, preparing meals, shopping, managing finances, etc.?: No Are you currently unemployed and looking for a job?: No Are you interested in more education?: No Please select the resources that you would like help with: None Currently or been in a relationship where the following occur: No concerns reported THRIVE Score: 0 AUDIT C Alcohol Use Questionnaire (AUDIT-C) 1. How often do you have a drink containing alcohol?: 2-3 times a week 2. How many drinks containing alcohol do you have on a typical day when you are drinking?: 1 or 2 3. How often do you have six or more drinks on one occasion?: Never Total Score: 3 MIGUEL ANGEL-7 AMB Questionnaire MIGUEL ANGEL-7 Date MIGUEL ANGEL - 7 assessed: 10/15/24 Feeling nervous, anxious, or on edge: 0 = Not at all Not being able to stop or control worryin = Not at all Worrying too much about different things: 0 = Not at all Trouble relaxin = Not at all Being so restless that it is hard to sit still: 0 = Not at all Becoming easily annoyed or irritable: 0 = Not at all Feeling afraid as if something awful might happen: 0 = Not at all Total MIGUEL ANGEL-7 score (0-4 normal; 5-9 mild; 10-14 moderate; 15-21 severe): 0 Source: Developed by Drs. Brien Perez, Isabella Merritt, Winston Goss and colleagues, with an educational aixa from [employer]. MIGUEL ANGEL-7 Assessment Billing MIGUEL ANGEL-7 Assessment Tool: MIGUEL ANGEL-7 Assessment 62798 Review of Systems Const Denies body aches, Denies fatigue, Denies fever(s), Denies headache(s) and Denies weakness Eyes Denies change in vision ENT Reports Normal hearing present, Denies dizziness, Denies headache(s), Denies nasal congestion, Denies nasal discharge and Denies sore throat Card Denies chest pain, Denies lightheadedness, Denies palpitations and Denies dyspnea Resp Denies chest congestion, Denies cough and Denies dyspnea GI Denies abdominal pain, Denies change in bowel habits and Denies heartburn Denies dysuria, Denies urinary frequency and Denies urinary urgency Musc Details: Denies muscle pain, weakness or cramping Skin/Breast Denies lesions and Denies rash Neuro Reports Normal hearing present, Denies dizziness, Denies headache(s), Denies Sensory deficit (Neuro) and Denies weakness Psych Reports no additional complaints Endo Denies fatigue, Denies polydipsia, Denies polyuria and Denies palpitations Brian/Lymph Reports no additional complaints Aller/Immun Reports no additional complaints Physical exam (Primary Care) Vital Signs: Last Vital Signs Temp 97.7 F 10/15/24 08:03 Pulse 88 10/15/24 08:03 Resp 16 10/15/24 08:03 BP 130/80 10/15/24 08:03 Pulse Ox 99 10/15/24 08:03 Oxygen Delivery Method Room Air 10/15/24 08:03 BMI result Body Mass Index 31.0 BMI Assessment/Plan discussion: High BMI High, discussed plan: weight reduction, dietary and physical activity Tobacco/Smoking Status: Tobacco use Status Tobacco use date assessed 10/15/24 10/15/24 08:05 Patient Tobacco Use Status Former Tobacco user 10/15/24 08:05 Tobacco use type 04/26/23 11:19 e-Cigarette/Vaping Use Never Used 10/15/24 08:05 PHQ-9: PHQ-9 Score PHQ-9: Total score 0 10/15/24 08:55 Depression Screening Interpretation: Negative Thrive Assessment: Date of Thrive Assessment Date Thrive assessed 10/15/24 10/15/24 08:05 Currently or been in a relationship where the following occur: No concerns reported Const General: cooperative, no acute distress and alert HENMT Mouth: moist mucous membranes Eyes General: appearance normal, both eyes and all related structures Neck Neck: Yes full ROM and Yes no lymphadenopathy Thyroid: Thyroid normal Resp Effort & Inspection: normal respiratory effort and able to speak in complete sentences Auscultation: clear to auscultation bilaterally Cardio Rate: regular rate Rhythm: regular rhythm Heart sounds: S1 normal heart sound present and S2 normal heart sound present GI Inspection: Yes normal to inspection Palpation (GI): Soft to palpation Auscultation: normal bowel sounds Neuro Cranial nerves: Yes Normal hearing present Sensory Exam: No Sensory deficit (Neuro) Extrem General: Yes normal to inspection, Yes full ROM, Yes no pedal edema and Yes normal gait Psych Appearance: grossly normal and well kempt Mental Status: mental status grossly normal Speech and movement: Normal speech and movement present Affect: normal affect Attitude: cooperative Results Reviewed Results Reviewed: Name: Himanshu Payan Age/Sex: 69/M : 1955 Unit#: [id number] Attend Dr: Maritza Bose MD Re10/11/24 Status: DEP REF Location: [facility] Disch: SPEC : [id number] [place]: 10/11/24 STATUS: COMP REQ : [id number] RECD: 10/11/24-[address]: Maritza Bose MD COMP: 10/11/24 ENTERED: 10/11/[address] [facility] [address]: ORDERED: Met Prof Fast, AST, ALT, Lipid Panel, Vitamin D 25-OH Test Result Flag Reference Sodium 141 135-145 mmol/L Potassium 4.3 3.3-5.1 mmol/L CL 110 H 96-108 mmol/L CO2 23 22-29 mmol/L Gap 12 12-20 BUN 18 H 9-16 mg/dL Creat 0.86 0.5-1.4 mg/dL eGFR > 60 Chronic Kidney Disease: Estimated GFR < 60 mL/min/1.73m2 Severe Kidney Disease: Estimated GFR < 15 mL/min/1.73m2 FBS 97 60-99 mg/dL CA 9.2 8.4-10.2 mg/dL AST (GOT) 30 5-37 U/L ALT (GPT) 17 0-40 U/L Triglyceride 187 H <150 mg/dL Desirable Triglyceride: less than 150 mg/dL Borderline High Triglyceride 150-199 mg/dL High Triglyceride: 200-499 mg/dL Very High Triglyceride: greater than or equal to 5OO mg/dL Cholesterol 195 <200 mg/dL Desirable Cholesterol: less than 200 mg/dL Borderline High Cholesterol: 200-239 mg/dL High Cholesterol: greater than 239 mg/dL LDL Calculated 99 <100 mg/dL Desirable LDL: less than 100 mg/dL Near Optimal/Above Optimal LDL: 110-129 mg/dL Borderline High LDL: 130-159 mg/dL High LDL: 160-189 mg/dL Very High LDL: greater than or equal to 190 mg/dL HDL 59 >40 mg/dL Desirable HDL: greater than 40 mg/dL Note: This HDL assay may give artificially low results in patients with liver disease. Vitamin D 25-OH 102.5 >30 ng/mL Health Based Reference Values* < 20 ng/mL Deficient 20-30 ng/mL Insufficient > 30 ng/mL Sufficient Coding Level of Care Code Est Pt Level 4 (11559) Complex EM visit Add On G2211 Diagnoses Mixed dyslipidemia E78.2 Impaired fasting glucose R73.01 History of adenomatous polyp of colon Z86.010 Additional Codes PHQ-9 - 30266 - PHQ-9 Billing: Yes ([id number]) MIGUEL ANGEL-7 Assessment Billing - MIGUEL ANGEL-7 Assessment Tool: MIGUEL ANGEL-7 Assessment 28019 ([id number]) Assessment & Plan Assessment & Plan (1) Mixed dyslipidemia: Code(s): E78.2 - Mixed hyperlipidemia Category: Medical Plan: Reviewed recent fasting lipids which showed slightly elevated triglycerides with normal LDL cholesterol and total cholesterol as well as good cholesterol levels. Will continue on atorvastatin 10 mg once a day together with fenofibric acid 135 mg daily and fish oil supplements. Reinforced importance of following recommended diet and getting regular exercise. Will check another fasting lipid panel and liver enzyme in six-months (2) Impaired fasting glucose: Code(s): R73.01 - Impaired fasting glucose Category: Medical Plan: Latest fasting glucose are within normal limits. Reviewed importance of following recommended diet and getting regular exercise to prevent progression later on 2 diabetes mellitus. (3) History of adenomatous polyp of colon: Comment: Removed on colonoscopy by Dr. Galdamez 2023 and in 2017 Code(s): Z86.010 - Personal history of colon polyps Category: Medical Plan: Removed on colonoscopy done by Dr. Galdamez in 2017, overdue for repeat colonoscopy this year. Patient states that he will call Dr. Galdamez's office to schedule an appointment and will let us know if he needs a new referral Orders: Orders Lipid Panel 03/25/25 E66.09 - Other obesity due to excess calories, E78.2 - Mixed hyperlipidemia, R73.01 - Impaired fasting glucose, Z68.31 - Body mass index [BMI] 31.0-31.9, adult Aspartate Amino Transferase 03/25/25 E66.09 - Other obesity due to excess calories, E78.2 - Mixed hyperlipidemia, R73.01 - Impaired fasting glucose, Z68.31 - Body mass index [BMI] 31.0-31.9, adult, Z86.010 - Personal history of colon polyps Alanine Aminotransferase 03/25/25 E66.09 - Other obesity due to excess calories, E78.2 - Mixed hyperlipidemia, R73.01 - Impaired fasting glucose, Z68.31 - Body mass index [BMI] 31.0-31.9, adult, Z86.010 - Personal history of colon polyps
== END 2024-10-15 09:22 | disposition home or self-care (01) ==
PROVIDERS: PCP Internal Medicine; Visit Provider Internal Medicine
DX: E78.2 Mixed hyperlipidemia (principal); R73.01 Impaired fasting glucose; Z86.0100 Personal history of colon polyps, unspecified

== ENCOUNTER → 2024-10-15 08:02 | Outpatient (BNVA) | payer MEDICARE, SELFPAY | PROVIDERS: PCP Internal Medicine; Visit Provider Internal Medicine | DX: E78.2 Mixed hyperlipidemia (principal); R73.01 Impaired fasting glucose; Z86.0100 Personal history of colon polyps, unspecified | CPT/HCPCS: 96127; 99212 ==

== ENCOUNTER 2025-05-01 06:22 | Outpatient (REF) | payer MEDICARE, SELFPAY ==
--- OUTSIDE RECORDS SUMMARY | 2025-05-01 06:25 | XMS_ITS | Patient Health Record ---
Author Organization [facility] Address [address] [place] [address] Care Team Providers Care Larriman Name Role Phone Maritza Bose MD Primary Care Provider Brien Alexander [phone] Allergies No Known Allergies Reason For Referral No Information Medications Medication SIG (Take, Route, Frequency, Duration) Notes Start Date End Date Status Lovaza 1 GM Orally Active Atorvastatin Calcium 10 MG 1 tablet Oral ly Once a day Active Turmeric Active Vitamin C Active Vitamin D Active Fenofibric Acid 135 MG 1 capsule Orally Active Immunizations Vaccine Route Administration Date Status Comme nts Influenza Unknown 03/25/2022 Administered Social History Tobacco Use: Social History Observation Description Date Details (start date - stop date) Former Smoker NA - NA Tobacco Use/Smoking Question Answer Notes Patient is a former smoker When did you stop smoking? 15 years ago How long has it been since you last smoked? > 10 years Alcohol Screen Question Answer Notes Did you have a drink contain ing alcohol in the past year? Yes How often did you have a dri nk containing alcohol in the past year? 4 or more times a week (4 points) How many drinks did you have on a typical day when you were drinking in the past year? 1 or 2 drinks (0 point) Points 4 Interpretation Positive Section Notes: Occasional cigar; stopped sm oking cigarettes > 10 yrs ago; at least 2-3 glasses of wine QD Occasional cigar; stopped sm oking cigarettes > 10 yrs ago; at least 2-3 glasses of wine QD Occasional cigar; stopped sm oking cigarettes > 10 yrs ago; at least 2-3 glasses of wine QD Problems Problem Type SNOMED Code ICD Code Onset Dates Problem Status W/U Status Risk Notes Problem 332642145 Encounter for screening for malignant neoplasm of colon (Z12.11) Active confirmed Problem 683542431 History of adenomatous polyp of colon (Z86.010) Active confirmed Problem History of polyp of colon (situation) (742223470) Personal history of colonic polyps (Z86.010) Active confirmed Problem Diverticular disease of colon (607084183) Diverticulosis of large intestine without perforation or abscess without bleeding (K57.30) Active confirmed Problem 731964651 Preprocedural examination (Z01.818) Active confirmed Problem 15070389 Sessile colonic polyp (K63.5) Active confirmed Plan Of Treatment Future Test Test Name Order Date COLONOSCOPY 01/18/2017 COLONOSCOPY 08/06/2022 COLONOSCOPY 04/26/2023 Insurance Providers Payer Name Payer Address Payer Phone Subscriber Number Group Number Insured Name Patient Relationship to Insured Coverage Start Date Coverage End Date [employer] [address] [place] [phone] [id number] RAMAN SHARP Self - patient is the insured Medical (General) History Medical History History ICD Code Tubular adenoma removed during colonosco py in November of [address] Pizarro Tendinopathy Right Rotator cuff Bakers cyst left knee Kidney stones-2001 Hyperlipidemia Denies OK,DM,CVA,Lung disease,renal dise ase Colonoscopy in April of 2017 with 3 tu bular adenomas removed Surgical History Surgery Date(Month/Year) Left knee surgery
[2025-05-01 08:16] LABS: Alanine Aminotransferase 20 U/L (0-40); Aspartate Amino Transferase 27 U/L (5-37); Cholesterol 172 mg/dL (<200); HDL Cholesterol 49 mg/dL (>40); Triglycerides 129 mg/dL (<150)
== END 2025-05-01 06:23 | disposition home or self-care (01) ==
LOC: HO.LAB 06:22
PROVIDERS: PCP Internal Medicine; Visit Provider Internal Medicine
DX: Z00.01 Encounter for general adult medical examination with abnormal findings (principal); E78.2 Mixed hyperlipidemia; E66.09 Other obesity due to excess calories; R73.01 Impaired fasting glucose; E66.811 Obesity, class 1; Z86.0100 Personal history of colon polyps, unspecified; Z68.31 Body mass index [BMI] 31.0-31.9, adult
CPT/HCPCS: 36415; 80061; 84450; 84460; 96127; 99397

== ENCOUNTER 2025-05-01 08:43 | Outpatient (AMB) | payer MEDICARE, SELFPAY ==
[2025-05-01 08:54] VITALS: BP 134/80; PULSE 73; RESP 16; TEMP 36.7; O2SAT 98; BMI 29.8
--- NOTE | 2025-05-01 08:54 | A.OFFPC_ITS ---
Vital Signs 05/01/25 08:54 Height 5 ft 8 in Weight 196 lb BMI 29.8 BP 134/80 Blood Pressure Location Rt brachial Position Sitting Respiration 16 Pulse 73 Pulse Source Pulse Oximeter Temp 98.1 F Temp Source Oral Pulse Oximetry (%) 98 Oxygen Delivery Method Room Air Intake Visit Reasons: Annual PE - see comments Intake Note: Pt is here today for his PE Allergies No Known Allergies Allergy (Verified 05/01/25 09:28) Medication List - Last Reconciled 05/01/25 by Maritza Bose MD atorvastatin 10 mg PO DAILY fenofibric acid (choline) 135 mg PO DAILY omega-3 acid ethyl esters 2 caps PO BID 90 days Tobacco use date assessed: 05/01/25 Fall risk assessment: 1 Fall in past year Last assessed Fall Risk: 05/01/25 Dental Screening Dental Screen Date: 05/01/25 Did you have a dental visit in the last 12 months?: No Did you have a dental problem in the last 6 months where you did not have access to dental care?: No Was dental information given to patient?: Patient has dentist HPI Annual PE - see comments HPI Details 69-year-old former tobacco user, with hi story of dyslipidemia, here today for his physical exam. He has been trying to adhere to recommended diet and has been compliant with taking his medications currently on atorvastatin and fenofibric acid as well as on Packwood 3 fatty acid supplement latest fasting labs showed normal liver enzymes, and fasting lipids are within normal limits. Colonoscopy done [place] [address] Galdamez with removal of 2 tubular adenoma polyps, repeat due again in 2025 Up-to-date with vaccines, reminded to get his yearly flu shot and COVID booster [facility] Medical History History of adenomatous polyp of colon Tendinopathy of right rotator cuff Hyperlipidemia Bakers cyst History of kidney stones Impaired fasting glucose Obesity Mixed dyslipidemia Surgical History Hx of colonoscopy History of knee surgery Family History Father Medical history non-contributory Mother Medical history non-contributory Brother Diabetes mellitus Social History Housing: House Alcohol intake: current Patient Tobacco Use Status: Former Tobacco user e-Cigarette/Vaping Use: Never Used Current occupational status: employed Cognitive needs: No Hearing needs: No Vision needs: No Questionnaire PHQ-9 Over the last 2 weeks, how often have you been bothered by any of the following problems? 1. Little interest or pleasure in doing things: not at all 2. Feeling down, depressed, or hopeless: not at all 3. Trouble falling or staying asleep, or sleeping too much: not at all 4. Feeling tired or having little energy: not at all 5. Poor appetite or overeating: not at all 6. Feeling bad about yourself - or that you are a failure or have let yourself or your family down: not at all 7. Trouble concentrating on things, such as reading the newspaper or watching television: not at all 8. Moving or speaking so slowly that other people could have noticed. Or the opposite - being so fidgety or restless that you have been moving around a lot more than usual: not at all 9. Thoughts that you would be better off or of hurting yourself in some way: not at all Total score: 0 Depression Screening Interpretation: Negative Depression Screening Done: Yes Source: Developed by Drs. Brien Perez, Isabella Merritt, Winston Goss and colleagues, with an educational aixa from [employer]. Thrive Questionnaire Date Thrive assessed: 10/15/24 I am a: Patient What is your living situation today?: I have a steady place to live Within the past 12 months, did the food you bought not last and you didn't have the money to get more?: Never true Within the past 12 months, did you worry whether your food would run out before you got money to buy more?: Never true Do you have trouble paying for medicines?: No Do you have trouble getting transportation to medical appointments?: No Do you have trouble paying your heating and electricity bill?: No Do you have trouble taking care of your child, family member or friend?: No Do you have trouble with day-to-day activities such as bathing, preparing meals, shopping, managing finances, etc.?: No Are you currently unemployed and looking for a job?: No Are you interested in more education?: No Please select the resources that you would like help with: None Currently or been in a relationship where the following occur: No concerns reported THRIVE Score: 0 AUDIT C Alcohol Use Questionnaire (AUDIT-C) 1. How often do you have a drink containing alcohol?: 2-3 times a week 2. How many drinks containing alcohol do you have on a typical day when you are drinking?: 1 or 2 3. How often do you have six or more drinks on one occasion?: Never Total Score: 3 MIGUEL ANGEL-7 AMB Questionnaire MIGUEL ANGEL-7 Date MIGUEL ANGEL - 7 assessed: 10/15/24 Feeling nervous, anxious, or on edge: 0 = Not at all Not being able to stop or control worryin = Not at all Worrying too much about different things: 0 = Not at all Trouble relaxin = Not at all Being so restless that it is hard to sit still: 0 = Not at all Becoming easily annoyed or irritable: 0 = Not at all Feeling afraid as if something awful might happen: 0 = Not at all Total MIGUEL ANGEL-7 score (0-4 normal; 5-9 mild; 10-14 moderate; 15-21 severe): 0 Source: Developed by Drs. Brien Perez, Isabella Merritt, Winston Goss and colleagues, with an educational aixa from [employer]. Review of Systems Const Denies body aches, Denies fatigue, Denies fever(s), Denies headache(s) and Denies weakness Eyes Details: Patient to make an appointment with his eye doctor for his routine eye exam Denies change in vision ENT Details: Has appointment already scheduled for dental exam next week Reports Normal hearing present and Denies headache(s) Card Denies chest pain, Denies lightheadedness, Denies palpitations and Denies dyspnea Resp Denies chest congestion, Denies cough and Denies dyspnea GI Denies abdominal pain, Denies change in bowel habits and Denies heartburn Denies dysuria, Denies urinary frequency and Denies urinary urgency Musc Details: Denies muscle pain, weakness or cramping Skin/Breast Denies lesions and Denies rash Neuro Reports Normal hearing present, Denies headache(s), Denies Sensory deficit (Neuro) and Denies weakness Psych Reports no additional complaints Endo Denies fatigue, Denies polydipsia, Denies polyuria and Denies palpitations Brian/Lymph Reports no additional complaints Aller/Immun Reports no additional complaints Physical exam (Primary Care) Vital Signs: Last Vital Signs Temp 98.1 F 05/01/25 08:54 Pulse 73 05/01/25 08:54 Resp 16 05/01/25 08:54 BP 134/80 05/01/25 08:54 Pulse Ox 98 05/01/25 08:54 Oxygen Delivery Method Room Air 05/01/25 08:54 BMI result Body Mass Index 29.8 BMI Assessment/Plan discussion: High BMI High, discussed plan: weight reduction, dietary and physical activity Tobacco/Smoking Status: Tobacco use Status Tobacco use date assessed 05/01/25 05/01/25 09:00 Patient Tobacco Use Status Former Tobacco user 05/01/25 08:56 Tobacco use type 10/15/24 09:05 e-Cigarette/Vaping Use Never Used 05/01/25 08:56 PHQ-9: PHQ-9 Score PHQ-9: Total score 0 05/01/25 09:29 Depression Screening Interpretation: Negative Thrive Assessment: Date of Thrive Assessment Date Thrive assessed 10/15/24 05/01/25 08:56 Currently or been in a relationship where the following occur: No concerns reported Const General: cooperative, no acute distress and alert HENMT Mouth: moist mucous membranes Eyes General: appearance normal, both eyes and all related structures Neck Neck: Yes full ROM and Yes no lymphadenopathy Thyroid: Thyroid normal Chest Chest palpation & inspection: normal inspection of the chest Resp Effort & Inspection: normal respiratory effort and able to speak in complete sentences Auscultation: clear to auscultation bilaterally Cardio Rate: regular rate Rhythm: regular rhythm Heart sounds: S1 normal heart sound present and S2 normal heart sound present GI Inspection: Yes normal to inspection Palpation (GI): Soft to palpation Auscultation: normal bowel sounds General: Yes no CVA tenderness Male General Exam: Yes normal external exam Back/Spine/Pelvis Back: no CVA tenderness and No back tenderness Skin General skin exam: no rashes or lesions noted and dry skin Neuro Cranial nerves: Yes Normal hearing present Sensory Exam: No Sensory deficit (Neuro) Extrem General: Yes normal to inspection, Yes full ROM, Yes no pedal edema and Yes normal gait Psych Appearance: grossly normal and well kempt Mental Status: mental status grossly normal Speech and movement: Normal speech and movement present Affect: normal affect Attitude: cooperative Results Reviewed Results Reviewed: Name: Himanshu Payan Age/Sex: 69/M : 1955 Unit#: [id number] Attend Dr: Maritza Bose MD Re05/01/25 Status: REG REF Location: .LAB Disch: SPEC : [id number] HU[place]ON: 05/01/25 STATUS: COMP REQ : [id number] RECD: 05/01/[address]: Maritza Bose MD COMP: 05/01/25 ENTERED: 05/01/[address]: ORDERED: AST, ALT, Lipid Panel Test Result Flag Reference AST (GOT) 27 5-37 U/L ALT (GPT) 20 0-40 U/L Triglyceride 129 <150 mg/dL Desirable Triglyceride: less than 150 mg/dL Borderline High Triglyceride 150-199 mg/dL High Triglyceride: 200-499 mg/dL Very High Triglyceride: greater than or equal to 5OO mg/dL Cholesterol 172 <200 mg/dL Desirable Cholesterol: less than 200 mg/dL Borderline High Cholesterol: 200-239 mg/dL High Cholesterol: greater than 239 mg/dL LDL Calculated 98 <100 mg/dL Desirable LDL: less than 100 mg/dL Near Optimal/Above Optimal LDL: 110-129 mg/dL Borderline High LDL: 130-159 mg/dL High LDL: 160-189 mg/dL Very High LDL: greater than or equal to 190 mg/dL HDL 49 >40 mg/dL Desirable HDL: greater than 40 mg/dL Note: This HDL assay may give artificially low results in patients with liver disease. Laboratory Tests 10/11/24 06:45 Microalb/Creat Ratio 17.2 Name: Himanshu Payan Age/Sex: 69/M : 1955 Unit#: [id number] Attend Dr: Maritza Bose MD Re10/11/24 Status: DEP REF Location: .[facility] Disch: SPEC : [id number] HU[place]ON: 10/11/24 STATUS: COMP REQ : [id number] RECD: 10/11/24-[address]: Maritza Bose MD COMP: 10/11/24 ENTERED: 10/11/24 [facility] DR: ORDERED: Met Prof Fast, AST, ALT, Lipid Panel, Vitamin D 25-OH Test Result Flag Reference Sodium 141 135-145 mmol/L Potassium 4.3 3.3-5.1 mmol/L CL 110 H 96-108 mmol/L CO2 23 22-29 mmol/L Gap 12 12-20 BUN 18 H 9-16 mg/dL Creat 0.86 0.5-1.4 mg/dL eGFR > 60 Chronic Kidney Disease: Estimated GFR < 60 mL/min/1.73m2 Severe Kidney Disease: Estimated GFR < 15 mL/min/1.73m2 FBS 97 60-99 mg/dL CA 9.2 8.4-10.2 mg/dL AST (GOT) 30 5-37 U/L ALT (GPT) 17 0-40 U/L Triglyceride 187 H <150 mg/dL Desirable Triglyceride: less than 150 mg/dL Borderline High Triglyceride 150-199 mg/dL High Triglyceride: 200-499 mg/dL Very High Triglyceride: greater than or equal to 5OO mg/dL Cholesterol 195 <200 mg/dL Desirable Cholesterol: less than 200 mg/dL Borderline High Cholesterol: 200-239 mg/dL High Cholesterol: greater than 239 mg/dL LDL Calculated 99 <100 mg/dL Desirable LDL: less than 100 mg/dL Near Optimal/Above Optimal LDL: 110-129 mg/dL Borderline High LDL: 130-159 mg/dL High LDL: 160-189 mg/dL Very High LDL: greater than or equal to 190 mg/dL HDL 59 >40 mg/dL Desirable HDL: greater than 40 mg/dL Note: This HDL assay may give artificially low results in patients with liver disease. Vitamin D 25-OH 102.5 >30 ng/mL Health Based Reference Values* < 20 ng/mL Deficient 20-30 ng/mL Insufficient > 30 ng/mL Sufficient Coding Level of Care Code Est Pt Prev Care >65y(35966) Diagnoses Annual visit for general adult medical examination with abnormal findings Z00.01 Mixed dyslipidemia E78.2 History of adenomatous polyp of colon Z86.010 Impaired fasting glucose R73.01 Class 1 obesity due to excess calories without serious comorbidity with body mass index (BMI) of 31.0 to 31.9 in adult E66.09; Z68.31 Body mass index: BMI 31.0-31.9 Obesity classification: adult class 1 (BMI 30 - 34.9) Obesity type: due to excess calories Serious obesity comorbidity presence: without serious comorbidity Assessment & Plan Assessment & Plan (1) Annual visit for general adult medical examination with abnormal findings: Code(s): Z00.01 - Encounter for general adult medical examination with abnormal findings Plan: Latest fasting lab results reviewed with patient. Continue with regular dental visit every 6 months and regular eye exams, at least every 2 years. Take adequate calcium in diet and vitamin-D 3 at 2000 IU per cap once a day, in addition to weight-bearing exercises to help maintain good muscle tone and weight control. Instructed to do self-testicular exam check for any mass. Reminded to get an updated COVID booster, flu shot and treated pneumonia vaccine. Already received his shingles vaccine and is up-to-date on Tdap (2) Mixed dyslipidemia: Code(s): E78.2 - Mixed hyperlipidemia Category: Medical Plan: Reviewed recent fasting lipid profile with patient with levels within normal limits except for elevated triglycerides. Continued on atorvastatin 10 mg daily and fenofibric acid 135 mg daily as well as Packwood 3 fatty acid supplements . Stressed importance of adherence to low-cholesterol diet and regular exercise, at least 30 minutes 3 to 4 times a week. Advised patient to make healthy food choices, eat more fruits, vegetables, whole grains, wild caught fish and low- fat dairy. Limit amount of meat and fried or fatty food products, as well as processed foods and fast foods. Follow-up scheduled with repeat fasting lipid panel in 6 months. (3) History of adenomatous polyp of colon: Comment: Removed on colonoscopy by Dr. Galdamez 2023 and in 2017 Code(s): Z86.010 - Personal history of colon polyps Category: Medical Plan: Repeat colonoscopy due again in [address] Galdamez (4) Impaired fasting glucose: Code(s): R73.01 - Impaired fasting glucose Category: Medical Plan: Your previous fasting blood sugars were elevated above 100 mg/dL. Impaired glucose metabolism increases the risk for developing diabetes mellitus type 2, as well as heart attack and stroke later on. Lifestyle changes that promotes weight loss, healthy eating habits, and regular exercise are important, and can prevent the progression to diabetes (5) Obesity: Code(s): E66.9 - Obesity, unspecified Category: Medical Qualifiers: Body mass index: BMI 31.0-31.9 Obesity classification: adult class 1 (BMI 30 - 34.9) Obesity type: due to excess calories Serious obesity comorbidity presence: without serious comorbidity Qualified Code(s): E66.09 - Other obesity due to excess calories; Z68.31 - Body mass index [BMI] 31.0-31.9, adult Plan: Discussed need to increase activity and weight reduction. Recommended focusing on improving health instead of dieting. Mediterranean diet is a healthy diet that helps, limit food high in fat, sugar, and calories. Eat slowly, pay attention to portion sizes, plan your meals ahead of time, start regular physical activity, at least 150 minutes of moderate intensity exercise, or 90 minutes per week of vigorous exercise. Orders: Orders Lipid Panel 6 Months E66.09 - Other obesity due to excess calories, E78.2 - Mixed hyperlipidemia, R73.01 - Impaired fasting glucose, Z00.01 - Encounter for general adult medical examination with abnormal findings, Z68.31 - Body mass index [BMI] 31.0-31.9, adult, Z86.010 - Personal history of colon polyps Alanine Aminotransferase 6 Months E66.09 - Other obesity due to excess calories, E78.2 - Mixed hyperlipidemia, R73.01 - Impaired fasting glucose, Z00.01 - Encounter for general adult medical examination with abnormal findings, Z68.31 - Body mass index [BMI] 31.0-31.9, adult, Z86.010 - Personal history of colon polyps Aspartate Amino Transferase 6 Months E66.09 - Other obesity due to excess luisana yimi, E78.2 - Mixed hyperlipidemia, R73.01 - Impaired fasting glucose, Z00.01 - Encounter for general adult medical examination with abnormal findings, Z68.31 - Body mass index [BMI] 31.0-31.9, adult, Z86.010 - Personal history of colon polyps Hemoglobin and Hematocrit 6 Months E66.09 - Other obesity due to excess calories, E78.2 - Mixed hyperlipidemia, R73.01 - Impaired fasting glucose, Z00.01 - Encounter for general adult medical examination with abnormal findings, Z68.31 - Body mass index [BMI] 31.0-31.9, adult, Z86.010 - Personal history of colon polyps Glucose Fasting 6 Months E66.09 - Other obesity due to excess calories, E78.2 - Mixed hyperlipidemia, R73.01 - Impaired fasting glucose, Z00.01 - Encounter for general adult medical examination with abnormal findings, Z68.31 - Body mass index [BMI] 31.0-31.9, adult, Z86.010 - Personal history of colon polyps Medications: Refilled atorvastatin 10 mg PO DAILY 90 tabs 3RF
== END 2025-05-01 09:46 | disposition home or self-care (01) ==
PROVIDERS: PCP Internal Medicine; Visit Provider Internal Medicine
DX: Z00.01 Encounter for general adult medical examination with abnormal findings (principal); E78.2 Mixed hyperlipidemia; Z86.0100 Personal history of colon polyps, unspecified; R73.01 Impaired fasting glucose; E66.09 Other obesity due to excess calories; Z68.31 Body mass index [BMI] 31.0-31.9, adult